=== PATIENT | male | born 1985 | race Caucasian/White ===

== ENCOUNTER 2024-05-30 15:56 | Emergency (ER) | payer OTHER, SELFPAY ==
[2024-05-30 16:01] VITALS: BP 183/114; PULSE 96; RESP 18; TEMP 36.7; O2SAT 97; BMI 32.9
[2024-05-30 16:07] VITALS: BP 171/101; BP 176/105; PULSE 83; PULSE 93; O2SAT 95; O2SAT 97
--- NOTE | 2024-05-30 16:08 | XR_ITS ---
PROCEDURE INFORMATION: Exam: XR Chest Exam date and time: 05/30/2024 4:06 PM Age: 39 years old Clinical indication: Pain; Other: Cp; Additional info: Chest pain TECHNIQUE: Imaging protocol: Radiologic exam of the chest. Views: 2 views. COMPARISON: No relevant prior studies available. FINDINGS: Lungs: No evidence of airspace infiltrate. No pulmonary edema. Pleural spaces: No visible pleural effusion. No pneumothorax. Heart/Mediastinum: Cardiomediastinal silouhette is within normal limits. Bones/joints: No evidence of acute osseous abnormality. IMPRESSION: No acute findings.
--- NOTE | 2024-05-30 16:10 | ECG_ITS ---
APPROVED REPORT Exam: Resting ECG HR:99 bpm ECG Measurements Heart Rate 99 AXES MT 156 P 31 QRSd 110 QRS 9 QT 352 T 1 QTc 409 Conclusion Sinus rhythm T wave changes in 3 and aVF without reciprocal change Electronically signed by : FEDERICO MORENO, 05/31/2024 15:00:37
[2024-05-30 16:17] LABS: Basophils # 0.1 K/mm3 (0-0.2); Basophils % 0.4 % (0.1-2.0); Eosinophils % 0.2 % (0.1-12.0); Hematocrit 37.7 % (42.0-52.0); Lymphocytes # 2.2 K/mm3 (0.7-4.5); Lymphocytes % 18.3 % (10-50); Mean Corpuscular HGB Conc 34.5 g/dL (31.8-35.4); Mean Corpuscular Hemoglobin 28.3 pg (27.0-31.2); Mean Corpuscular Volume 82.1 fl (80-94); Monocytes # 0.8 K/mm3 (0.1-1.0); Monocytes % 6.2 % (1.7-9.3); Neutrophils % 74.4 % (37.0-80.0); Platelet Count 272 K/mm3 (142-424); Red Blood Count 4.59 M/mm3 (4.60-6.20); Red Cell Distribution Width 12.8 % (11.5-17.5)
[2024-05-30 16:18] LABS: Chloride 103 mmol/L (98-107); Sodium 136 mmol/L (136-145)
[2024-05-30 16:19] LABS: Potassium 3.3 mmoL/L (3.5-5.1)
[2024-05-30 16:21] LABS: Alanine Aminotransferase 35 U/L (12-78); Alkaline Phosphatase 69 U/L (38-126); Anion Gap 9.3 mEq/L (5-15); Aspartate Amino Transferase 53 U/L (17-59); Bilirubin,Total 0.4 mg/dl (0.2-1.3); Blood Urea Nitrogen 14 mg/dl (9-20); Carbon Dioxide 27 mmol/L (22.0-30.0); Creatinine Clearance Estimated 225 mL/min (50-200); Estimated Glomerular Filt Rate 109 ml/min (>60); GFR (African American) 132 ML/MIN (>60)
[2024-05-30 16:22] LABS: Calcium 9.2 mg/dl (8.4-10.2); Glucose 102 mg/dl (74-100)
[2024-05-30 16:39] LABS: Troponin I < 0.01 ng/ml (0.00-0.034)
[2024-05-30 17:02] VITALS: BP 172/117; PULSE 93; O2SAT 97
[2024-05-30 17:29] LABS: D-Dimer 0.61 ug/mL (0.0-0.5)
[2024-05-30 17:48] LABS: Albumin Level 4.4 g/dl (3.5-5.0); Albumin/Globulin Ratio 1.7 (1.1-1.8); Globulin 2.6 g/dL (1.3-3.2)
[2024-05-30] MEDS: LISINOPRIL 20MG TABLET 20 MG PO (18:12)
[2024-05-30 18:36] VITALS: BP 179/112; PULSE 83; O2SAT 97
--- NOTE | 2024-05-30 18:47 | PC.NURSE ---
ROUNDED ON PT, UPDATED ON POC. NO NEEDS AT THIS TIME
[2024-05-30 18:49] VITALS: BP 172/124; PULSE 85; O2SAT 97
--- NOTE | 2024-05-30 18:55 | PC.NURSE ---
ELEVATED B/P 172/120, YUE AND DR MORENO NOTIFIED. NO NEW ORDERS. PT RECENTLY RECEIVED B/P MED
[2024-05-30 19:02] LABS: Troponin I < 0.01 ng/ml (0.00-0.034)
--- NOTE | 2024-05-30 19:21 | [facility].EDCP ---
Discharge Plan Disposition Patient Disposition: Home, Self-Care Condition: Good Prescriptions Prescriptions: New lisinopril 20 mg tablet 20 mg PO DAILY Qty: 14 0RF No Action methylprednisolone [Medrol (Al)] 4 mg Tablets,Dose Pack 4 mg PO DAILY Referrals Follow up/Referrals: Provider,Referral, MD [Primary Care Provider] - See instructions Activity Restrictions/Add. Instructions Additional Instructions/Restrictions: You were seen for chest pain and hypertension. Please follow up with your PCP this week for recheck. Clinical Impressions Clinical Impression: Hypertension Instructions Patient Instructions: High Blood Pressure Print Language Print Language: Micronesian Discharge ED Provider: Sigifredo Strange HPI <HYACINTH Rivera - Last Filed: 05/30/24 19:26> General Chief Complaint: Chest Pain Stated Complaint: Chest pain Time Seen by Provider: 05/30/24 16:00 Mode of Arrival: EMS Source of Information: Patient and EMS Limitations: No Limitations Description of Symptoms (Recalled from ER Triage Doc. by RN): Pt. presents to the ED via EMS with complaints of chest pressure in the center of his chest, jaw pain, and elevated blood pressure that started about 30 mins ago. He states he was driving and began feeling very flush and unwell. He starting taking a steroid dose pack yesterday for back pain. History of Present Illness HPI narrative: Patient presents with concerns over elevated blood pressure. He reports that his blood pressure was elevated at his PCP office yesterday over 180 systolic. He reports that 1 hour ago he developed 2 minutes of chest tightness, neck pressure and jaw tightness. He has had a dry cough. Denies any fever or congestion. Denies any shortness of breath. Denies any CVA symptoms. complaint: chest pain Onset (ago): hour(s) (1) Duration: now resolved Activity at onset: during rest Pain location: substernal Severity: mild Quality: tightness Pain radiation: neck and jaw/teeth Relieving factors: nothing Exacerbating factors: nothing Context: recent illness and recent travel Related Data Home Medications ?Medication ?Instructions ?Recorded ?Confirmed methylprednisolone 4 mg tablets in 4 mg PO DAILY 05/30/24 05/30/24 a dose pack (Medrol (Al)) Previous Rx's ?Medication ?Instructions ?Recorded lisinopril 20 mg tablet 20 mg PO DAILY #14 tabs 05/30/24 Allergies Allergy/AdvReac Type Severity Reaction Status Date / Time General Anesthesia AdvReac Hypotension Uncoded 05/30/24 16:09 [facility] <HYACINTH Rivera - Last Filed: 05/30/24 19:26> [facility] Disclaimer: The information contained in this section may have been updated after the patient was seen, as this information can be updated by other users. Surgical History (Updated 05/30/24 @ 16:07 by Barbara Johns RN) History of left shoulder replacement History of appendectomy Social History (Updated 05/30/24 @ 19:26 by HYACINTH Rivera) Smoking Status: Never smoker alcohol intake: current current occupational status: other Travel in the last 8 weeks: None Have you lived/traveled outside [place] in past 30 days?: No Contact w/someone who lives/traveled outside [place] past 30 days?: No Exposure to someone with infectious disease in past 14 days?: No Do you have a fever (greater than 100.4 F or 38 C)?: No Have you tested positive for COVID-19: No Exposed to someone with COVID-19 in past 14 days?: No Do you have a sore throat?: No Do you have a cough?: No Do you have any weakness?: No Do you have any diarrhea?: No Are you experiencing any unusual bleeding?: No Do you have any muscle aches/pain?: No Do you have any abdominal pain?: No Are you experiencing loss of taste or smell?: No <HYACINTH Rivera - Last Filed: 05/30/24 19:26> ROS Obtained: Yes Systems reviewed as appropriate & no additional complaints except as documented Physical Exam <HYACINTH Rivera - Last Filed: 05/30/24 19:26> General General appearance: alert and in no apparent distress Head Head exam: atraumatic and normocephalic Eye Eye exam: Present normal appearance and EOMI Chest Chest inspection: Present symmetric chest wall rise Respiratory Respiratory exam: Present normal lung sounds bilaterally; Absent wheezes or stridor Cardiovascular Cardiovascular exam: Present regular rate and normal rhythm; Absent systolic murmur Neurological Exam Neurological exam: Present alert, oriented X3 and normal gait; Absent motor sensory deficit Psychiatric Psychiatric exam: Present normal affect and normal mood Skin Skin exam: Present warm, dry and intact HEART Score <HYACINTH Rivera - Last Filed: 05/30/24 19:26> HEART Score HEART Score assessment performed?: No History (anamnesis): Slightly suspicious ECG: Normal Age: <45 years Risk factors: No known risk factors Troponin: </= normal limit HEART Score: 0 <Sigifredo Strange MD - Last Filed: 05/30/24 23:26> HEART Score HEART Score: 0 Critical Care <HYACINTH Rivera - Last Filed: 05/30/24 19:26> Critical Care Time Critical Care Time: No Medical Decision Making <HYACINTH Rivera - Last Filed: 05/30/24 19:26> Petar Inquiry Pt receiving controlled substance: No Vital Signs Vital Signs: 05/30/24 16:01 05/30/24 16:07 05/30/24 16:07 Temperature 98.1 F Temperature Source Oral Pulse Rate 83 93 H Pulse Rate [Right Brachial] 96 H Respiratory Rate 18 Blood Pressure 176/105 H 171/101 H Blood Pressure [Right Arm] 183/114 H Blood Pressure Mean [Right Arm] 137 Blood Pressure Source Blood Pressure Source [Right Arm] Automatic Cuff Blood Pressure Position Blood Pressure Position [Right Arm] Sitting 02 Sat by Pulse Oximetry 97 95 97 Oxygen Delivery Method Room Air Room Air Room Air 05/30/24 17:02 05/30/24 18:36 05/30/24 18:49 Temperature Temperature Source Pulse Rate 93 H 83 85 Pulse Rate [Right Brachial] Respiratory Rate Blood Pressure 172/117 H 179/112 H 172/124 H Blood Pressure [Right Arm] Blood Pressure Mean [Right Arm] Blood Pressure Source Blood Pressure Source [Right Arm] Blood Pressure Position Blood Pressure Position [Right Arm] 02 Sat by Pulse Oximetry 97 97 97 Oxygen Delivery Method 05/30/24 19:31 Temperature 98.2 F Temperature Source Oral Pulse Rate 79 Pulse Rate [Right Brachial] Respiratory Rate 16 Blood Pressure 168/112 H Blood Pressure [Right Arm] Blood Pressure Mean [Right Arm] Blood Pressure Source Automatic Cuff Blood Pressure Source [Right Arm] Blood Pressure Position Sitting Blood Pressure Position [Right Arm] 02 Sat by Pulse Oximetry Oxygen Delivery Method Room Air Lab Data Labs: Lab Results 05/30/24 15:55: WBC 12.0 H, RBC 4.59 L, Hgb 13.0 L, Hct 37.7 L, MCV 82.1, MCH 28.3, MCHC 34.5, RDW 12.8, Plt Count 272, MPV 10.0, Neut % (Auto) 74.4, Lymph % (Auto) 18.3, [place] % (Auto) 6.2, Eos % (Auto) 0.2, Baso % (Auto) 0.4, Neut # (Auto) 9.0 H, Lymph # (Auto) 2.2, [place] # (Auto) 0.8, Eos # (Auto) 0.0, Baso # (Auto) 0.1, D-Dimer 0.61 H, Sodium 136, Potassium 3.3 L, Chloride 103, Carbon Dioxide 27, Anion Gap 9.3, BUN 14, Creatinine 0.80, Estimated Creat Clear 225, Estimated GFR 109, Est GFR ( Amer) 132, Glucose 102 H, Calcium 9.2, Total Bilirubin 0.4, AST 53, ALT 35, Alkaline Phosphatase 69, Troponin I < 0.01, Total Protein 7.0, Albumin 4.4, Globulin 2.6, Albumin/Globulin Ratio 1.7 05/30/24 18:35: Troponin I < 0.01 05/30/24 15:55 05/30/24 15:55 Response Orders (Tests/Meds): ED MEDICATIONS Discontinued Medications Generic Name Dose Route Start Last Admin Trade Name Freq PRN Reason Stop Dose Admin Lisinopril 20 mg 05/30/24 18:15 05/30/24 18:12 Lisinopril 20mg Tablet PO 05/30/24 18:16 20 mg ONCE ONE Administration ORDERS Category Date Time Status XR chest 2V Stat Exams 05/30/24 16:08 Completed Complete Blood Count Auto Diff Stat Lab 05/30/24 15:55 Completed Comprehensive Metabolic Panel Stat Lab 05/30/24 15:55 Completed D-Dimer Stat Lab 05/30/24 15:55 Completed Troponin I Q3H Lab 05/30/24 18:35 Completed Troponin I Stat Lab 05/30/24 15:55 Completed MDM Narrative Medical Decision Narrative: In summary patient is a 39-year-old male who presents the emergency department for evaluation of chest pressure. Patient is hypertensive upon arrival, afebrile. Unremarkable physical exam. Differential diagnosis includes hypertension, ACS, pulmonary embolism, pneumonia. Initial workup will be conducted with labs including D-dimer, EKG, chest x-ray. Initial inventions include lisinopril for persistently elevated blood. Initial workup reviewed by me slight leukocytosis, he is taking Medrol Dosepak. He also has slight anemia which he was advised to follow-up with his PCP for further evaluation of. Upon repeat evaluation patient continues to be symptom-free. Given this patient is appropriate for discharge with a prescription for lisinopril. Advised to follow-up with his PCP for further management. <Sigifredo Strange MD - Last Filed: 05/30/24 23:26> Vital Signs Vital Signs: 05/30/24 16:01 05/30/24 16:07 05/30/24 16:07 Temperature 98.1 F Temperature Source Oral Pulse Rate 83 93 H Pulse Rate [Right Brachial] 96 H Respiratory Rate 18 Blood Pressure 176/105 H 171/101 H Blood Pressure [Right Arm] 183/114 H Blood Pressure Mean [Right Arm] 137 Blood Pressure Source Blood Pressure Source [Right Arm] Automatic Cuff Blood Pressure Position Blood Pressure Position [Right Arm] Sitting 02 Sat by Pulse Oximetry 97 95 97 Oxygen Delivery Method Room Air Room Air Room Air 05/30/24 17:02 05/30/24 18:36 05/30/24 18:49 Temperature Temperature Source Pulse Rate 93 H 83 85 Pulse Rate [Right Brachial] Respiratory Rate Blood Pressure 172/117 H 179/112 H 172/124 H Blood Pressure [Right Arm] Blood Pressure Mean [Right Arm] Blood Pressure Source Blood Pressure Source [Right Arm] Blood Pressure Position Blood Pressure Position [Right Arm] 02 Sat by Pulse Oximetry 97 97 97 Oxygen Delivery Method 05/30/24 19:31 Temperature 98.2 F Temperature Source Oral Pulse Rate 79 Pulse Rate [Right Brachial] Respiratory Rate 16 Blood Pressure 168/112 H Blood Pressure [Right Arm] Blood Pressure Mean [Right Arm] Blood Pressure Source Automatic Cuff Blood Pressure Source [Right Arm] Blood Pressure Position Sitting Blood Pressure Position [Right Arm] 02 Sat by Pulse Oximetry Oxygen Delivery Method Room Air Lab Data Labs: Lab Results 05/30/24 15:55: WBC 12.0 H, RBC 4.59 L, Hgb 13.0 L, Hct 37.7 L, MCV 82.1, MCH 28.3, MCHC 34.5, RDW 12.8, Plt Count 272, MPV 10.0, Neut % (Auto) 74.4, Lymph % (Auto) 18.3, [place] % (Auto) 6.2, Eos % (Auto) 0.2, Baso % (Auto) 0.4, Neut # (Auto) 9.0 H, Lymph # (Auto) 2.2, [place] # (Auto) 0.8, Eos # (Auto) 0.0, Baso # (Auto) 0.1, D-Dimer 0.61 H, Sodium 136, Potassium 3.3 L, Chloride 103, Carbon Dioxide 27, Anion Gap 9.3, BUN 14, Creatinine 0.80, Estimated Creat Clear 225, Estimated GFR 109, Est GFR ( Amer) 132, Glucose 102 H, Calcium 9.2, Total Bilirubin 0.4, AST 53, ALT 35, Alkaline Phosphatase 69, Troponin I < 0.01, Total Protein 7.0, Albumin 4.4, Globulin 2.6, Albumin/Globulin Ratio 1.7 05/30/24 18:35: Troponin I < 0.01 Response Orders (Tests/Meds): ED MEDICATIONS Discontinued Medications Generic Name Dose Route Start Last Admin Trade Name Freq PRN Reason Stop Dose Admin Lisinopril 20 mg 05/30/24 18:15 05/30/24 18:12 Lisinopril 20mg Tablet PO 05/30/24 18:16 20 mg ONCE ONE Administration ORDERS Category Date Time Status XR chest 2V Stat Exams 05/30/24 16:08 Completed Complete Blood Count Auto Diff Stat Lab 05/30/24 15:55 Completed Comprehensive Metabolic Panel Stat Lab 05/30/24 15:55 Completed D-Dimer Stat Lab 05/30/24 15:55 Completed Troponin I Q3H Lab 05/30/24 18:35 Completed Troponin I Stat Lab 05/30/24 15:55 Completed MDM Narrative Medical Decision Narrative: In summary patient is a 39-year-old male who presents the emergency department for evaluation of chest pressure. Patient is hypertensive upon arrival, afebrile. Unremarkable physical exam. Differential diagnosis includes hypertension, ACS, pulmonary embolism, pneumonia. Initial workup will be conducted with labs including D-dimer, EKG, chest x-ray. Initial inventions include lisinopril for persistently elevated blood. Initial workup reviewed by me slight leukocytosis, he is taking Medrol Dosepak. He also has slight anemia which he was advised to follow-up with his PCP for further evaluation of. Upon repeat evaluation patient continues to be symptom-free. Given this patient is appropriate for discharge with a prescription for lisinopril. Advised to follow-up with his PCP for further management. Sesar: Sinus rhythm [address] or T wave changes concerning for acute ischemia. [place] interval 156, QRS 110, QTc 409. Normal axis. Nonspecific T wave changes V6. I was consulted by the JOHNNA, and we discussed the complexity of the problems being addressed. I approved the treatment and management plan for this patient's care in the Emergency Department, thus performing a substantive portion of the medical decision making. Sigifredo Strange MD
--- NOTE | 2024-05-30 19:25 | PC.NURSE ---
Report received from Nell FAITH Pt resting quietly in bed Skin pink warm and dry Resp full and easy Speech clear and appropriate.
[2024-05-30 19:31] VITALS: BP 168/112; PULSE 79; RESP 16; TEMP 36.8; O2SAT 97
== END 2024-05-30 19:32 | disposition home or self-care (01) ==
PROVIDERS: Physician Assistant; Emergency Provider Emergency Medicine
DX: I10 Essential (primary) hypertension (principal); R07.9 Chest pain, unspecified; R68.84 Jaw pain; M54.2 Cervicalgia
CPT/HCPCS: 71046; 80053; 84484; 85025; 85378; 93005; 99284